=== PATIENT | female | born 1975 | race Asian ===

== ENCOUNTER 2016-09-28 21:09 | Emergency (ER) | payer OTHER ==
[~2016-09-28] VITALS: Ht 149.9 cm; Wt 62.1 kg
--- NOTE | 2016-09-28 21:37 | ED CARDIAC/CP/PALPITATIONS ---
History of Present Illness General Chief Complaint: Chest Pain Stated Complaint: CP Source: patient, family Exam Limitations: no limitations Vital Signs & Intake/Output Vital Signs & Intake/Output Vital Signs Date Time Temp Pulse Resp B/P B/P Pulse O2 O2 Flow FiO2 Mean Ox Delivery Rate 09/28 2116 97.5 71 16 125/83 98 Room Air Room Air Allergies Coded Allergies: No Known Allergies (09/28/16) Reconcile Medications Levothyroxine Sodium 50 MCG TABLET 1 TAB PO DAILY THYROID (Reported) Triage Nurses Notes Reviewed? yes : No Patient currently breastfeeds: No HPI: Since this morning patient has been experiencing episodic feelings of a pulsation in her chest. The feelings last a few seconds and then go away. Patient states that he did not feel like palpitations or that her heart is racing or skipping beats. Patient cannot describe other than stating that they feel like a pulsation in the left side of her chest. There is no radiation when she gets these symptoms. There are no aggravating or mitigating factors. Patient denies any shortness of breath. She denies any light Headedness or blurry vision. There is no sweating. There is no nausea or vomiting. Past History Travel History Traveled to [place] past 21 day No Medical History Any Pertinent Medical History? 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 No Review of Systems Review of Systems Constitutional: Reports: no symptoms. EENTM: Reports: no symptoms. Respiratory: Reports: no symptoms. Cardiovascular: Reports: see HPI, chest pain. GI: Reports: no symptoms. Genitourinary: Reports: no symptoms. Musculoskeletal: Reports: no symptoms. Skin: Reports: no symptoms. Neurological/Psychological: Reports: no symptoms. Hematologic/Endocrine: Reports: no symptoms. Immunologic/Allergic: Reports: no symptoms. All Other Systems: Reviewed and Negative Physical Exam Physical Exam General Appearance: well developed/nourished, alert, awake, anxious, mild distress Head: atraumatic, normal appearance Eyes: Bilateral: PERRL, EOMI. Ears, Nose, Throat: normal pharynx, normal ENT inspection, hearing grossly normal Neck: normal inspection, supple, full range of motion, NO JVD Respiratory: normal breath sounds, chest non-tender, no respiratory distress, lungs clear Cardiovascular: regular rate/rhythm, normal peripheral pulses Gastrointestinal: normal bowel sounds, soft, non-tender Back: normal inspection, normal range of motion Extremities: normal inspection, normal capillary refill, normal range of motion, no edema Neurologic/Psych: no motor/sensory deficits, awake, alert, oriented x 3, normal gait, normal mood/affect Skin: intact, normal color, warm/dry Lymphatic: no anterior cervical mary Core Measures ACS in differential dx? 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 Severe Sepsis Present: No Septic Shock Present: No Progress Differential Diagnosis: AMI, atrial fibrillation, CHF/pulm edema, costochondritis, hyperkalemia, hyperthyroid, myocarditis, pericarditis, PSVT, pulmonary embolism, PVCs/PACs, unstable angina Plan of Care: Orders Procedure Date/time Status Add-on Test (ER Only) 09/28 2149 Active TROPONIN LEVEL 09/28 2145 Complete Telemetry/Geneticist 09/29 2135 Active THYROID STIMULATING HORMONE 09/28 2134 Complete MAGNESIUM 09/28 2134 Complete COMPREHENSIVE METABOLIC PANEL 09/28 2134 Complete CBC WITHOUT DIFFERENTIAL 09/28 2134 Complete EKG 09/28 2108 Active Laboratory Tests 09/28/162145: Anion Gap 9, Estimated GFR > 60, BUN/Creatinine Ratio 22.9, Glucose 86, Calcium 9.3, Magnesium 2.2, Total Bilirubin 0.4, AST 16, ALT 37, Alkaline Phosphatase 52 , Troponin I < 0.01, Total Protein 7.1, Albumin 4.3, Globulin 2.8, Albumin/ Globulin Ratio 1.5, TSH 6.610 H, CBC w Diff NO MAN DIFF REQ, RBC 4.36, MCV 90.9 , MCH 30.6, RDW 13.4, MPV 7.5, Gran % 48.9, Lymphocytes % 42.7, Monocytes % 6.5, Eosinophils % 1.6, Basophils % 0.3, Absolute Granulocytes 3.3, Absolute Lymphocytes 2.9, Absolute Monocytes 0.4, Absolute Eosinophils 0.1, Absolute Basophils 0, PUBS MCHC 33.7 Initial ED EKG: NSR, no ST T wave changes Rhythm Strip: normal sinus rhythm Comments: Patient had 3 episodes while in the emergency department. There's been no abnormalities on telemetry monitoring. Each episode lasted less than 5 seconds. At this point the patient will be discharged home with cardiology follow-up. Departure Departure Disposition: HOME OR SELF CARE Condition: Stable Clinical Impression Primary Impression: Chest pain, unspecified Qualifiers: Chest pain type: other chest pain Qualified Code: R07.89 - Other chest pain Referrals: JASS BAKER MD PATIENT HAS NO PRIMARY CARE DR (PCP/Family) Additional Instructions: RETURN IF SYMPTOMS WORSEN OR FOR ANY CONCERNS Departure Forms: Customer Survey General Discharge Information Critical Care Note Critical Care Note Critical Care Time: non-applicable
[2016-09-28 21:59] LABS: ABSOLUTE BASOPHIL COUNT 0 /CUMM (0.0-0.2); ABSOLUTE EOSINOPHIL COUNT 0.1 /CUMM (0.0-0.7); ABSOLUTE GRANULOCYTE CT 3.3 /CUMM (1.4-6.5); ABSOLUTE LYMPH COUNT 2.9 /CUMM (1.2-3.4); ABSOLUTE MONOCYTE COUNT 0.4 /CUMM (0.10-0.60); BASOPHIL % 0.3 % (0.0-2.0); EOSINOPHIL % 1.6 % (0-5); GRANULOCYTE % 48.9 % (42.2-75.2); HEMATOCRIT 39.6 % (37-47); MEAN CORPUSCULAR HGB 30.6 PG (27.0-31.0); MEAN CORPUSCULAR HGB CONC 33.7 G/DL (33.0-37.0); MEAN CORPUSCULAR VOLUME 90.9 FL (81.0-99.0); MEAN PLATELET VOLUME 7.5 FL (7.4-10.4); PLATELET COUNT 322 /CUMM (130-400); RBC DISTRIBUTION WIDTH 13.4 % (11.5-14.5); RED BLOOD CELL CT 4.36 /CUMM (4.20-5.40); WHITE BLOOD CELL COUNT 6.8 /CUMM (4.8-10.8)
[2016-09-28] MEDS ORDERED: LEVOTHYROXINE50 MCG PO (22:16)
[2016-09-28 22:45] VITALS: BP 124/79
== END 2016-09-28 22:52 ==
LOC: ERH 21:09
PROVIDERS: Emergency Medicine
DX: R07.9 Chest pain, unspecified (principal)
CPT/HCPCS: 93005; 93010